=== PATIENT | female | born 1950 | race Caucasian/White ===

== ENCOUNTER 2024-05-21 12:09 | Day surgery (SDC) | payer MEDICARE ==
[2024-05-15 11:54] LABS: BILIRUBIN,URINE SMALL (Neg); CLARITY,URINE CLEAR (Clear); COLOR,URINE YELLOW (Yellow); GLUCOSE, URINE NEGATIVE (Neg); KETONES,URINE TRACE mg/dl (Neg); LEUKOCYTE ESTERASE ,URINE TRACE (Neg); NITRITES, URINE NEGATIVE (Neg); OCCULT BLOOD,URINE NEGATIVE (Neg); PH,URINE 5.5 (4.8-8.0); PROTEIN,URINE 30 mg/dl (Neg); UROBILINOGEN,URINE 0.2 E.U/dL (0.2-1.0)
[2024-05-15 11:58] LABS: BASOPHILS # (AUTO) 0.1 X10'3 (0-0.2); BASOPHILS % (AUTO) 0.7 % (0-1); EOSINOPHILS # (AUTO) 0.4 X10'3 (0-0.9); EOSINOPHILS % (AUTO) 4.1 % (0-6); LYMPHOCYTES # (AUTO) 2.3 X10'3 (1.1-4.8); LYMPHOCYTES % (AUTO) 22.6 % (21-51); MEAN CORPUSCULAR HEMOGLOBIN 29.8 PG (27.0-31.0); MEAN CORPUSCULAR HGB CONC 33.1 g/dL (33.0-36.5); MEAN CORPUSCULAR VOLUME 89.8 FL (78-98); MEAN PLATELET VOLUME 7.6 FL (7.4-10.4); MONOCYTES # (AUTO) 0.7 X10'3 (0-0.9); MONOCYTES % (AUTO) 7.4 % (2-12); NEUTROPHILS # (AUTO) 6.6 X10'3 (1.8-7.7); NEUTROPHILS % (AUTO) 65.2 % (42-75); PRE OP HEMATOCRIT 49.2 % (35.0-45.0); PRE OP HEMOGLOBIN 16.3 g/dL (12.0-16.0); PRE OP PLATELET COUNT 356 X10'3 (140-440); PRE OP WHITE BLOOD COUNT 10.1 10'3 (4.8-10.8); RED BLOOD COUNT 5.48 X10'6 (4.20-5.60)
[2024-05-15 11:59] LABS: UA COLLECTION TYPE CLN CATCH MIDSTREAM
[2024-05-15 12:00] LABS: BACTERIA,URINE NONE SEEN /HPF (Neg); MUCUS STRANDS FEW /LPF (Neg); RBC,URINE NONE SEEN /HPF (0-2); SQUAMOUS EPITHELIAL CELL,UR MODERATE /LPF (FEW)
[2024-05-15 12:12] LABS: ALBUMIN 3.6 G/DL (3.4-5.0); ALBUMIN/GLOBULIN RATIO 0.9 (1.1-1.5); ALKALINE PHOSPHATASE 121 IU/L (46-116); BLOOD UREA NITROGEN 22 MG/DL (7-18); BUN/CREATININE RATIO 23.2 (10.0-20.0); CALCIUM 10.4 MG/DL (8.5-10.1); CHLORIDE 104 MMOL/L (99-107); CREATININE 0.95 MG/DL (0.40-0.90); PRE OP ALT 37 U/L (30-65); PRE OP ANION GAP 6 (8-16); PRE OP AST 20 U/L (10-37); PRE OP BILIRUB, TOTAL 0.6 MG/DL (0.0-1.0); PRE OP POTASSIUM 4.7 MMOL/L (3.4-5.1); PRE OP SODIUM 140 MMOL/L (135-145); TOTAL CARBON DIOXIDE 29.8 MMOL/L (24-32); TOTAL PROTEIN 7.8 G/DL (6.4-8.2); eGFR 58 ML/MIN
[2024-05-15 12:44] LABS: PRE OP GLUCOSE 219 MG/DL (70-104)
[~2024-05-21] VITALS: Ht 162.6 cm; Wt 113.4 kg
[2024-05-21] VITALS (11 sets, daily range): BP systolic 134–154; BP diastolic 78–88; PULSE 68–71; RESP 15–20; TEMP 97.6; O2SAT 94–100
[~2024-05-21 12:09] MED LIST: BUSP15TA3 PO; LANTUS SQ; METF-438 PO; MVI; PANT40TA54 PO; SIMV80TA89 PO; SOTA80TA PO; VENL150C58 PO; WARF6TAB7 PO; ringers solution, lacted 1,000 ML IV SCH
[2024-05-21] MEDS: famotidine 20mg tablet PO ONE (12:34)
[2024-05-21] MEDS: DOCUMENT DATE & TIME OF BETA-BLOCKER PO ONE (12:34)
[2024-05-21] MEDS: ceFOXitin sod/dextrose 2g/50ml 50 ML IV ONE (12:35)
[2024-05-21 13:22] LABS: PRE OP INR 1.2 INR; PRE OP PROTIME 12.1 SECONDS (9.0-12.0)
[2024-05-21] MEDS ORDERED: morphine 4 MG/ML inj SYRINge IV PRN (15:15)
[2024-05-21] MEDS ORDERED: ondansetron/PF 4mg/2ml inj IV PRN (15:15)
[2024-05-21] MEDS ORDERED: morphine 2 MG/ML inj. syringe IV PRN (15:15)
[2024-05-21] MEDS ORDERED: proCHLORperazine 10 MG/2 ml inj IV PRN (15:15)
[2024-05-21] MEDS ORDERED: ringers solution, lacted 1,000 ML IV SCH (15:15)
[2024-05-21] MEDS ORDERED: meperidine/PF 25mg/ml syringe IV PRN ×3 (15:15)
[2024-05-21] MEDS ORDERED: fentaNYL/PF 50MCG/1 ML 2ML syringe ONE (15:18)
[2024-05-21] MEDS ORDERED: midazolam 1 mg/ML 2ml injection ONE (15:18)
[2024-05-21] MEDS ORDERED: sevoflurane 250ml liquid IH ONE (15:19)
[2024-05-21] MEDS ORDERED: propofol inj 20 ML IV ONE (15:19)
== END 2024-05-21 17:46 | disposition home or self-care (01) ==
LOC: PAS 12:09
PROVIDERS: ATTEND Obstetrics & Gynecology Obstetrics
DX: N95.0 Postmenopausal bleeding (principal); N85.8 Other specified noninflammatory disorders of uterus; G47.30 Sleep apnea, unspecified; E11.9 Type 2 diabetes mellitus without complications; F32.A Depression, unspecified; I48.91 Unspecified atrial fibrillation; F41.9 Anxiety disorder, unspecified; I10 Essential (primary) hypertension; Z90.49 Acquired absence of other specified parts of digestive tract; Z98.890 Other specified postprocedural states; Z86.14 Personal history of Methicillin resistant Staphylococcus aureus infection; E78.5 Hyperlipidemia, unspecified; Z79.899 Other long term (current) drug therapy; Z88.8 Allergy status to other drugs, medicaments and biological substances
CPT/HCPCS: 36415; 58558; 71046; 80053; 81001; 82948; 85025; 85610; 85730; 86885; 86900; 86901; 87088; A4355; A4618; A6258; A7000; J0694; J2250; J2704; J3010; J7030; J7120; Z7506; Z7512; Z7610; 88305